=== PATIENT | male | born 1960 | race Caucasian/White ===

== ENCOUNTER 2022-05-16 11:38 | Emergency (ER) | payer OTHER ==
[2022-05-16 11:50] VITALS: BP 134/60; PULSE 59; RESP 18; TEMP 98; BMI 24.4
[2022-05-16] MEDS ORDERED: DIPHTH,PERTUSS(ACELL),TET 0.5 ML DISP.SYRIN IM ONE ×2 (12:05→12:08)
[2022-05-16] MEDS ORDERED: TETANUS AND DIPHTHERIA TOXOID 0.5 ML DISP.SYRIN IM ONE (12:05)
== END 2022-05-16 16:28 | disposition home or self-care (01) ==
LOC: FER 11:38
PROC: 3E0234Z Introduction of Serum, Toxoid and Vaccine into Muscle, Percutaneous Approach (ICD-10-PCS; principal; 2022-05-16)
DX: Z04.1 Encounter for examination and observation following transport accident (principal); V19.9XXA Pedal cyclist (driver) (passenger) injured in unspecified traffic accident, initial encounter; Y92.9 Unspecified place or not applicable
CPT/HCPCS: 70450-TC; 71046-TC-FY; 71250-TC; 72125-TC; 72170-TC-FY; 73070-TC-RT-FY; 73562-TC-RT-FY; 90715; 99285-25